=== PATIENT | male | born 2000 | race Caucasian/White ===

== ENCOUNTER 2020-07-14 18:02 | Observation (INO) | payer OTHER ==
[~2020-07-14] VITALS: Ht 185.4 cm; Wt 93.9 kg
[2020-07-14] MEDS ORDERED: ONDANSETRON HCL 4 MG/2 ML VIAL ONE (18:29)
[2020-07-14] MEDS ORDERED: CEFAZOLIN SODIUM 1 GM VIAL ONE (18:29)
[2020-07-14] MEDS ORDERED: MORPHINE SULFATE 4 MG/1ML SYG ONE (18:30)
[2020-07-14] MEDS ORDERED: TETANUS/DIPHTHERIA TOXOID [ADULT] 0.5 ML VIAL IM ONE (18:30)
[2020-07-14] MEDS ORDERED: SODIUM CHLORIDE 0.9% 100 ML IV ONE (18:30)
[2020-07-14 19:35] LABS: BASOPHILS % (AUTO) 0.4 % (0.0-5.0); EOSINOPHILS % (AUTO) 0.8 % (0.0-8.0); HEMATOCRIT 45.4 % (42-54); LYMPHOCYTES % (AUTO) 19.2 % (21.0-51.0); MEAN CORPUSCULAR HEMOGLOBIN 31.1 pg (27.0-33.0); MEAN CORPUSCULAR HGB CONC 34.6 g/dL (32.0-36.0); MEAN CORPUSCULAR VOLUME 89.9 fL (80-100); MONOCYTES % (AUTO) 5.5 % (3.0-13.0); NEUTROPHILS % (AUTO) 73.9 % (40.0-77.0); PLATELET COUNT (AUTO) 208 K/uL (130-400); RED BLOOD CELL COUNT(AUTO) 5.05 MIL/uL (4.50-6.20); RED CELL DISTRIBUTION WIDTH 11.9 % (11.0-15.5); WHITE BLOOD COUNT (AUTO) 9.8 K/uL (4.8-10.8)
[2020-07-14 19:44] LABS: POTASSIUM 3.8 mmol/L (3.5-5.1)
[2020-07-14 19:49] LABS: ALBUMIN 5.1 g/dL (3.5-5.0); BILIRUBIN,TOTAL 0.5 mg/dL (0.2-1.0); TOTAL PROTEIN, SERUM 8.3 g/dL (6.0-8.3)
[2020-07-14] MEDS ORDERED: DIPHENHYDRAMINE HCL 25 MG CAPSULE PO PRN (22:30)
[2020-07-14] MEDS ORDERED: LACTULOSE 20 GM/30 ML UDCUP PO PRN (22:30)
[2020-07-14] MEDS ORDERED: ONDANSETRON HCL 4 MG/2 ML VIAL IV PRN (22:30)
[2020-07-14] MEDS ORDERED: LACTATED RINGERS 1000ML 1,000 ML IV SCH (22:30)
[2020-07-14] MEDS ORDERED: NITROGLYCERIN 0.4 MG SL TAB SL PRN (22:30)
[2020-07-14] MEDS ORDERED: DiphenhydrAMINE HCL 50 MG/ML VIAL IV PRN (22:30)
[2020-07-14] MEDS ORDERED: ACETAMINOPHEN 325 MG TAB PO PRN ×2 (22:30)
[2020-07-14] MEDS ORDERED: MAG HYDROX/AL HYDROX/SIMETH ES 30 ML SUSP UDCUP PO PRN (22:30)
[2020-07-14] MEDS ORDERED: GUAIFENESIN-DM 200/20 MG 10 ML PO PRN (22:30)
[2020-07-14 23:30] VITALS: BP 149/77
[2020-07-14] MEDS ORDERED: LACTATED RINGERS 1000ML 1,000 ML IV ONE (23:49)
[2020-07-15 04:30] VITALS: BP 128/78
[2020-07-15 08:16] VITALS: BP 129/70
[2020-07-15 11:33] VITALS: BP 114/62
== END 2020-07-15 13:30 | disposition home or self-care (01) ==
LOC: EDH 18:02 → EDHIP 22:16 → 3CH 22:54
PROVIDERS: ADMIT Family Medicine; ATTEND Family Medicine
DX: S69.81XA Other specified injuries of right wrist, hand and finger(s), initial encounter (principal); Z20.822 Contact with and (suspected) exposure to COVID-19; S61.212A Laceration without foreign body of right middle finger without damage to nail, initial encounter; F12.90 Cannabis use, unspecified, uncomplicated; Z23 Encounter for immunization; W20.8XXA Other cause of strike by thrown, projected or falling object, initial encounter; Y93.89 Activity, other specified; Y92.89 Other specified places as the place of occurrence of the external cause
CPT/HCPCS: 12042; 36415; 73130; 80053; 85025; 87426; 90471; 90714; 96360; 96361; 99291; G0378 ×15; J0690; J2270; J2405; J7120 ×2; U0003